=== PATIENT | female | born 1965 | race Caucasian/White ===

== ENCOUNTER 2017-02-15 10:30 | Emergency (ER) | payer OTHER, MEDICAID ==
[~2017-02-15] VITALS: Ht 152.4 cm; Wt 50.0 kg
[~2017-02-15 10:30] MED LIST: DEPA250T2 PO; KEPP1000 PO; ONDA1TAB16 PO; PHEN100 PO; PHEN97.2 PO; THIA50CA PO; XANA0.5T PO; Z.0.NO CURRENT MEDS
[2017-02-15 10:40] VITALS: BP 132/81; PULSE 62; RESP 15; TEMP 98; O2SAT 97
[2017-02-15] MEDS ORDERED: SODIUM CHLOR 0.9% 1000 ML INJ 1,000 ML IV SCH (11:15)
--- NOTE | 2017-02-15 11:15 | PD ---
HPI Chief Complaint: General Weakness Time Seen by Provider: 10:50 Travel History International Travel<30 days: No Contact w/Intl Traveler<30days: No Traveled to known affect area: No History of Present Illness HPI This 51-year-old female is brought to the emergency department because of generalized weakness. She is being treated for a glioblastoma grade 4. She had her last resection on February 21, 2016. She has been on Avastin every 2 weeks. Last Thursday she received her first dose of opdiva. She seemed to be in her usual state of health until this morning. She was somewhat restless last night. She ate breakfast this morning. She did have a fall where she slid off her bed. Her did not witness it and doesn't know if she hit her head. He says that she was much weaker than usual. She was not able to walk. She generally is able to walk. She has a history of many seizures and is on Tegretol and Keppra and topiramate she has a chronic right-sided hemiparesis. PFSH Past Surgical History Neurologic Surgery: Yes (BRAIN SURGERY/AVM) Social History Alcohol Use: No Tobacco Use: Yes (1 PPD) Substance Use: Yes ("OCCASSIONAL XANAX") Allergies-Medications (Allergen,Severity, Reaction): Coded Allergies: No Known Allergies (Verified , 02/11/16) Reported Meds & Prescriptions Reported Meds & Active Scripts Active Reported Dexamethasone 6 Mg Tab 6 Mg PO TID Xanax (Alprazolam) 0.5 Mg Tab 0.5 Mg PO Q6H PRN Topiramate 25 Mg Tab 50 Mg PO BID Effexor XR 24 HR (Venlafaxine HCl) 37.5 Mg Cap 37.5 Mg PO DAILY Divalproex DR (Divalproex Sodium) 250 Mg Tabdr 250 Mg PO BID Divalproex DR (Divalproex Sodium) 125 Mg Tabdr 125 Mg PO BID Trileptal (Oxcarbazepine) 600 Mg Tab 600 Mg PO BID Review of Systems ROS Limitations: Altered Mental Status Physical Exam Narrative GENERAL: Well-developed female. She did vomit on arrival SKIN: Focused skin assessment warm/dry. HEAD: Atraumatic. Normocephalic. EYES: Pupils equal and round. No scleral icterus. No injection or drainage. ENT: No nasal bleeding or discharge. Mucous membranes pink and moist. NECK: Trachea midline. No JVD. CARDIOVASCULAR: Regular rate and rhythm. No murmur appreciated. RESPIRATORY: No accessory muscle use. Clear to auscultation. Breath sounds equal bilaterally. GASTROINTESTINAL: Abdomen soft, non-tender, nondistended. Hepatic and splenic margins not palpable. MUSCULOSKELETAL: No obvious deformities. No clubbing. No cyanosis. No edema. NEUROLOGICAL: Patient is awake. She could not speak much. She has a right hemiparesis PSYCHIATRIC: Not testable Data Data Last Documented VS Vital Signs Date Time Temp Pulse Resp B/P (MAP) Pulse Ox O2 Delivery O2 Flow Rate FiO2 02/15/17 14:00 62 140/88 (105) 98 02/15/17 10:40 98.0 15 Orders Orders Complete Blood Count With Diff (02/15/17 11:06) Comprehensive Metabolic Panel (02/15/17 11:06) Magnesium (Mg) (02/15/17 11:06) Ct Brain W/O Iv Contrast(Rout) (02/15/17 11:06) Sodium Chlor 0.9% 1000 Ml Inj (Ns 1000 M (02/15/17 11:15) Carbamazepine (Tegretol) (02/15/17 11:06) Ondansetron Inj (Zofran Inj) (02/15/17 13:15) Labs Laboratory Tests Test 02/15/17 10:45 White Blood Count 6.7 TH/MM3 Red Blood Count 4.30 MIL/MM3 Hemoglobin 14.8 GM/DL Hematocrit 41.8 % Mean Corpuscular Volume 97.0 FL Mean Corpuscular Hemoglobin 34.3 PG Mean Corpuscular Hemoglobin Concent 35.3 % Red Cell Distribution Width 13.1 % Platelet Count 106 TH/MM3 Mean Platelet Volume 5.3 FL Neutrophils (%) (Auto) 87.5 % Lymphocytes (%) (Auto) 6.9 % Monocytes (%) (Auto) 5.5 % Eosinophils (%) (Auto) 0.1 % Basophils (%) (Auto) 0.0 % Neutrophils # (Auto) 5.8 TH/MM3 Lymphocytes # (Auto) 0.5 TH/MM3 Monocytes # (Auto) 0.4 TH/MM3 Eosinophils # (Auto) 0.0 TH/MM3 Basophils # (Auto) 0.0 TH/MM3 CBC Comment DIFF FINAL Differential Comment Blood Urea Nitrogen 14 MG/DL Creatinine 0.56 MG/DL Random Glucose 130 MG/DL Total Protein 6.3 GM/DL Albumin 2.8 GM/DL Calcium Level 7.7 MG/DL Magnesium Level 2.1 MG/DL Alkaline Phosphatase 46 U/L Aspartate Amino Transf (AST/SGOT) 64 U/L Alanine Aminotransferase (ALT/SGPT) 142 U/L Total Bilirubin 0.7 MG/DL Sodium Level 125 MEQ/L Potassium Level 4.0 MEQ/L Chloride Level 91 MEQ/L Carbon Dioxide Level 20.9 MEQ/L Anion Gap 13 MEQ/L Estimat Glomerular Filtration Rate 113 ML/MIN Carbamazepine (Tegretol) Level LESS THAN 0.5 MCG/ML MDM Medical Decision Making Medical Screen Exam Complete: Yes Emergency Medical Condition: Yes Medical Record Reviewed: Yes Differential Diagnosis CT scan does show tumor but there is no evidence of wheezing. Her sodium is 125 it has been low in the past. He has returned to her baseline. Her cares for at home and is aware that her prognosis. He says that she appears to be at baseline is willing to take her home. We have tried to contact her oncologist [facility] without success to advise patient may have had an atypical seizure. She did vomit once more in the ER and given Zofran with good results. Narrative Course Patient's says that she has returned to baseline and will take her home and follow-up with her oncologist Diagnosis Primary Impression: Glioblastoma multiforme Scripts Ondansetron Odt (Zofran Odt) 4 Mg Tab 4 MG SL Q8HR Y for Nausea/Vomiting, #10 TAB 0 Refills Prov: Sreekanth Funes MD 02/15/17 Disposition: DISCHARGE HOME Condition: Stable Sreekanth Funes MD Feb 15, 2017 11:15
[2017-02-15] MEDS ORDERED: DIVA125T PO (11:18)
[2017-02-15] MEDS ORDERED: DIVA250T PO (11:18)
[2017-02-15] MEDS ORDERED: VENL1CAP38 PO (11:18)
[2017-02-15] MEDS ORDERED: TRIL600T PO (11:18)
[2017-02-15] MEDS ORDERED: TOPI1TAB97 PO (11:18)
[2017-02-15] MEDS ORDERED: DEXA6TAB PO ×2 (11:18→12:05)
[2017-02-15] MEDS ORDERED: ALPR.5 PO (11:18)
[2017-02-15 11:25] LABS: AUTOMATED NEUTROPHIL # 5.8 TH/MM3 (1.8-7.7); EOSINOPHIL % 0.1 % (0.0-4.0); HEMATOCRIT 41.8 % (35.0-46.0); LYMPH % 6.9 % (9.0-44.0); LYMPHOCYTE # 0.5 TH/MM3 (1.0-4.8); MEAN CORPUSCULAR HEMOGLOBIN 34.3 PG (27.0-34.0); MEAN CORPUSCULAR HGB CONC 35.3 % (32.0-36.0); MONO % 5.5 % (0.0-8.0); NEUT % 87.5 % (16.0-70.0); PLATELET COUNT 106 TH/MM3 (150-450); RED CELL DISTRIBUTION WIDTH 13.1 % (11.6-17.2); WHITE BLOOD COUNT 6.7 TH/MM3 (4.0-11.0)
[2017-02-15 11:26] LABS: HEMO FLAGS DIFF FINAL
[2017-02-15 11:37] LABS: CHLORIDE 91 MEQ/L (98-107); SODIUM (NA) 125 MEQ/L (136-145)
[2017-02-15 11:40] LABS: ANION GAP 13 MEQ/L (5-15); BICARBONATE 20.9 MEQ/L (21.0-32.0); MAGNESIUM 2.1 MG/DL (1.5-2.5)
[2017-02-15 11:41] LABS: BLOOD UREA NITROGEN 14 MG/DL (7-18)
[2017-02-15 11:43] LABS: ALT (GPT) 142 U/L (10-53)
[2017-02-15 11:44] LABS: AST (GOT) 64 U/L (15-37); GLOMERULAR FILTRATION RATE 113 ML/MIN (>89)
[2017-02-15 11:45] LABS: TOTAL BILIRUBIN ADULT 0.7 MG/DL (0.2-1.0)
[2017-02-15 11:46] LABS: ALKALINE PHOSPHATASE 46 U/L (45-117)
[2017-02-15 12:21] VITALS: BP 112/75; PULSE 60; O2SAT 99
--- NOTE | 2017-02-15 12:21 | RADRPT ---
EXAM DATE/TIME: 02/15/2017 12:00 [facility] COMPARISON: MRI SPECTROSCOPY W/O CONTRAST, January 29, 2016, 17:01. INDICATIONS : Altered mental status. Decrease in responsiveness and weakness this morning. RADIATION DOSE: 59.61 CTDIvol (mGy) MEDICAL HISTORY : Glioblastoma. AVM SURGICAL HISTORY : Craniotomy. ENCOUNTER: Initial ACUITY: 1 day PAIN SCALE: 0/10 LOCATION: cranial TECHNIQUE: Multiple contiguous axial images were obtained of the head. Using automated exposure control and adj ustment of the mA and/or kV according to patient size, radiation dose was kept as low as reasonably a chievable to obtain optimal diagnostic quality images. DICOM format image data is available electro nically for review and comparison. FINDINGS: CEREBRUM: There is evidence of previous surgery with numerous surgical clips in the left parietal lobe. There i s surrounding encephalomalacia extending to the great matter in the left parietal lobe. In the left t emporal lobe there is a possible mass measuring 1.9 x 1.5 cm with a surrounding rim of hypodensity po ssible encephalomalacia. The central area of soft tissue may represent residual tumor. POSTERIOR FOSSA: The cerebellum and brainstem are intact. The 4th ventricle is midline. The cerebellopontine angle i s unremarkable. EXTRACRANIAL: The visualized portion of the orbits is intact. SKULL: Multiple craniotomy flaps are noted. CONCLUSION: 1.9 x 1.5 cm area of soft tissue in the left temporal lobe with surrounding hypodensity could be resi dual tumor. A previous surgical cavity in the high left parietal lobe with clips and surrounding ence phalomalacia. Multiple cranial surgeries. Wu Monreal MD on February 15, 2017 at 12:16 Board Certified Radiologist. This report was verified electronically.
[2017-02-15] MEDS ORDERED: ONDANSETRON HCL 4 MG/2 ML VIAL IV PUSH ONE (13:15)
[2017-02-15 14:00] VITALS: BP 140/88; PULSE 62; O2SAT 98
[2017-02-15] MEDS ORDERED: ZOFR4TAB3 SL (14:10)
== END 2017-02-15 14:48 | disposition home or self-care (01) ==
LOC: PHED 10:30
DX: C71.9 Malignant neoplasm of brain, unspecified (principal); R56.9 Unspecified convulsions; G81.91 Hemiplegia, unspecified affecting right dominant side
CPT/HCPCS: 70450; 80053; 80156; 83735; 85025; 96361; 96374; 99285; J2405; J7030